=== PATIENT | female | born 1975 | race Caucasian/White ===

== ENCOUNTER → 2016-11-04 | Outpatient (CLI) | payer MEDICAID ==
--- NOTE | 2016-11-04 11:43 | CR ---
EXAMINATION: Left shoulder HISTORY: Pain COMPARISON: None TECHNIQUE: 3 views FINDINGS/IMPRESSION: There is a mildly comminuted essentially nondisplaced proximal left humerus fra cture with a probable greater tuberosity avulsion component. Screw and plate hardware fixate the dis elmer clavicle. Bone mineralization is otherwise normal.
== END ==
LOC: MW.CHORTHO 08:33
PROVIDERS: ATTEND Orthopaedic Surgery
DX: M25.512 Pain in left shoulder (principal); S42.255A Nondisplaced fracture of greater tuberosity of left humerus, initial encounter for closed fracture; Z96.7 Presence of other bone and tendon implants
CPT/HCPCS: 73030-26-LT; 73030-LT

== ENCOUNTER → 2016-11-07 | Outpatient (CLI) | payer MEDICAID ==
--- NOTE | 2016-11-10 14:29 | MR ---
EXAM DATE: 11/07/16 PATIENT'S AGE: 41 Patient: BOBBY GARRETT Facility: [place], [place] Site . Site : [id number] Study: MRI Knee Left [id number]/12/2017 6:31:01 PM Ordering Physician: Nain Bar Final Report: HISTORY: Left knee pain. Technique: Axial, sagittal and coronal T1, proton density and proton density fat saturated images were obtained of the left knee without contrast administration. Comparison: No prior. Findings: Medial compartment: Medial meniscus: On sagittal PD image #20, there is increased signal involving the free edge of the posterior horn of the medial meniscus close to the root of the meniscus which may indicate a small area of meniscal fraying. The body and anterior horn of the medial meniscus are intact. Articular cartilage: There is a mild impaction fracture involving the far posterior aspect of the medial tibial plateau without depression of the articular surface or definite focal cartilage defect. Articular surfaces within the medial compartment appear smooth. The medial femoral condyle articular cartilage is maintained. - Lateral compartment: Lateral meniscus: Intact without tear. Articular cartilage: There is an impaction fracture involving the posterior 1.3 cm of the lateral tibial plateau with mild depression of the articular surface and posterior downward sloping of the articular surface. There does not appear to be focal abrupt step-off at the surface of the articular cartilage itself. Lateral femoral condyle articular cartilage is maintained. - Patellofemoral compartment: Small area of subtle subchondral marrow edema underlying the patellar apex and lateral facet apex junction likely relates to the presence of overlying grade 4 cartilage abnormality. There is no focal trochlear cartilage defect. - Ligaments: There is an acute traumatic disruption of the anterior cruciate ligament. The posterior cruciate ligament is intact. Medial collateral ligament is intact. Lateral ligamentous complex maintained. - Extensor mechanism: Distal quadriceps tendon and patellar tendon are intact. Medial and lateral patellar restraints are intact. No patellar subluxation or rosio. - Joint space: Moderate knee joint effusion. There is potentially some intra- articular hemorrhage within the joint space superiorly. - Bones and soft tissues: As above, there is impaction fracture involving the posterior 1.3 cm of lateral tibial plateau with posterior downward sloping of the articular surface. Small impaction fracture involving the far posterior aspect of medial tibial plateau without depression of the articular surface. Bone marrow contusion lateral aspect lateral femoral condyle. Nondisplaced fracture involving the fibular head. Interstitial muscle edema involving the popliteus muscle compatible with strain. Posterolateral corner capsular sprain. No significant popliteal cyst. Impression: 1. Acute traumatic disruption of the anterior cruciate ligament of the left knee. 2. Mild impaction fracture involving the posterior aspect of lateral tibial plateau with posterior downward sloping. Small impaction fracture involving posterior aspect of medial tibial plateau. 3. Nondisplaced fracture of fibular head. 4. Bone marrow contusion of the lateral aspect of lateral femoral condyle. 5. Knee joint effusion, likely with intra-articular hemorrhage. 6. Chondromalacia patella. 7. Popliteus muscle strain and posterolateral corner capsular sprain. 8. Small area of increased signal involving the free edge of the posterior horn of medial meniscus could reflect a small area of fraying. Menisci are otherwise intact. Dictated by Tony Carter MD @ Nov 10 2016 10:24AM (Electronic Signature) Report Signed by Proxy. CHANDU
== END ==
LOC: MW.MRI 16:12
PROVIDERS: ATTEND Orthopaedic Surgery
DX: M25.562 Pain in left knee (principal)
CPT/HCPCS: 73721-26-LT; 73721-LT

== ENCOUNTER → 2016-11-11 | Outpatient (CLI) | payer MEDICAID ==
--- NOTE | 2016-11-11 13:51 | CR ---
EXAMINATION: Left shoulder HISTORY: Fracture COMPARISON: 11/04/2016 TECHNIQUE: 2 views FINDINGS/IMPRESSION: There is a stable mildly comminuted nondisplaced proximal left humerus fracture identified. Screw and plate hardware fixate a remote clavicle fracture. Overall position and alignm ent appear grossly unchanged.
== END ==
LOC: MW.CHORTHO 09:56
PROVIDERS: ATTEND Orthopaedic Surgery
DX: S42.295A Other nondisplaced fracture of upper end of left humerus, initial encounter for closed fracture (principal); Z96.7 Presence of other bone and tendon implants
CPT/HCPCS: 73030-26-LT; 73030-LT

== ENCOUNTER 2017-07-29 09:57 | Day surgery (SDC) | payer MEDICAID ==
[~2017-07-29 09:57] MED LIST: Acetaminophen/HYDROcodone 325-5 MG Tab PO PRN; Lactated Ringers 1,000 ML IV SCH; ceFAZolin 2 GM in Premix Bag 1 BAG IV SCH
--- NOTE | 2017-07-29 11:20 | PCM.PREANE ---
Preanesthetic Assessment - Anesthesia/Transfusion/Family Hx Anesthesia History: Prior Anesthesia Without Reaction Family History of Anesthesia Reaction: No Transfusion History: No Prior Transfusion(s) - Review of Systems General: No Symptoms Pulmonary: No Symptoms Cardiovascular: No Symptoms Gastrointestinal: No Symptoms Neurological: No Symptoms Other: Reports: None - Physical Assessment NPO Status Date: 07/28/17 NPO Status Time: 20:00 O2 Sat by Pulse Oximetry: 97 Respiratory Rate: 16 Vital Signs: Last Vital Signs Temp 35.8 C 07/29/17 10:15 Pulse 72 07/29/17 10:15 Resp 16 07/29/17 10:15 BP 134/87 07/29/17 10:15 Pulse Ox 97 07/29/17 10:15 Height: 1.73 m Weight: 109.316 kg ASA Class: 2 Mental Status: Alert & Oriented x3 Airway Class: Mallampati = 2 Dentition: Reports: Dentures ROM/Head Extension: Full Lungs: Clear to Auscultation, Normal Respiratory Effort Cardiovascular: Regular Rate, Regular Rhythm - Allergies Allergies/Adverse Reactions: Allergies Allergy/AdvReac Type Severity Reaction Status Date / Time No Known Allergies Allergy Verified 07/27/17 08:13 - Acknowledgements Anesthesia Type Planned: General Anesthesia Pt an Appropriate Candidate for the Planned Anesthesia: Yes Alternatives and Risks of Anesthesia Discussed w Pt/Guardian: Yes Pt/Guardian Understands and Agrees with Anesthesia Plan: Yes Additional Comments: PMH: fibromyalgia, Wheezing - uses inhaler once a week, smoker, hx of seizure from xanax withdrawl, htn, bipolar PreAnesthesia Questionnaire HEENT History: Reports: Other (See Below) Other HEENT History: top and bottom dentures, wears glasses/contacts Cardiovascular History: Reports: Heart Murmur, Hypertension Respiratory History: Reports: Asthma Other Respiratory History: states asthma is weather related Gastrointestinal History: Reports: GERD Genitourinary History: Reports: None 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: Musculoskeletal History: Reports: Fibromyalgia Other Musculoskeletal History: hx fx back, shoulder, wrist and clavicle Neurological History: Reports: Concussion, Seizure Other Neuro History: states "had seizure due to being taken off medication", 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" Psychiatric History: Reports: Anxiety, Bipolar, Depression Endocrine/Metabolic History: Reports: Obesity/BMI 30+ Oncologic (Cancer) History: Reports: Cervix - Past Surgical History Head Surgeries/Procedures: Reports: None GI Surgical History: Reports: Cholecystectomy Female Surgical History: Reports: Hysterectomy Musculoskeletal Surgical History: Reports: Other (See Below) Other Musculoskeletal Surgeries/Procedures:: clavicle fx repair - SUBSTANCE USE Smoking Status *Q: Current Every Day Smoker Recreational Drug Use History: No - HOME MEDS Home Medications: Home Meds Celecoxib 2 tab PO DAILY 03/30/17 [History] DULoxetine [Cymbalta] 30 mg PO BID 03/30/17 [History] Gabapentin [Neurontin] 600 mg PO TID 03/30/17 [History] Omeprazole 20 mg PO DAILY 03/30/17 [History] tiZANidine [Zanaflex] 4 mg PO BEDTIME 03/30/17 [History] ALPRAZolam [Alprazolam] 0.5 mg PO TID PRN 07/27/17 [History] Albuterol [Ventolin HFA] 2 puff INH ASDIRECTED PRN 07/27/17 [History] Losartan Potassium 25 mg PO DAILY 07/27/17 [History] Vortioxetine Hydrobromide [Trintellix] 5 mg PO DAILY 07/27/17 [History] - CURRENT (IN HOUSE) MEDS Current Meds: Current Medications Hydrocodone Bitart/Acetaminophen (Sanford 325-5 Mg) 1 - 2 tab PO Q4H PRN PRN Reason: Pain Cefazolin Sodium/Dextrose 2 gm (/ Premix) 50 mls @ 100 mls/hr IV ONCALL JABARI Lactated Ringer's (Ringers, Lactated) 1,000 mls @ 100 mls/hr IV ASDIRECTED [facility] Last Admin: 07/29/17 10:23 Dose: 100 mls/hr
[2017-07-29] MEDS ORDERED: Lidocaine 2% 5 ML SDV ONE (12:08)
[2017-07-29] MEDS ORDERED: Propofol 200 MG/20 ML SDV ONE (12:09)
[2017-07-29] MEDS ORDERED: Midazolam 1 MG/ML 2 ML SDV ONE ×2 (12:09→12:33)
[2017-07-29] MEDS ORDERED: fentaNYL 100 MCG/2 ML SDV ONE (12:09)
[2017-07-29] MEDS ORDERED: Midazolam 1 MG/ML 2 ML SDV IVPUSH ONE (12:37)
--- NOTE | 2017-07-29 14:06 | PCM.OPNOTE ---
- General Post-Op/Procedure Note Date of Surgery/Procedure: 07/29/17 Operative Procedure(s): L knee arthroscopy with PMM Post-Op Diagnosis: L knee medial meniscus tear, ACL tear Anesthesia Technique: General LMA Primary Surgeon: Dipika Gillette Assistant Teacher: Radha Crump in mLs: 5 Condition: Good Free Text/Narrative:: tt=20 min #[id number]
[2017-07-29] MEDS ORDERED: Labetalol 100 MG/20 ML MDV ONE (14:11)
[2017-07-29] MEDS: fentaNYL 100 MCG/2 ML SDV IVPUSH PRN ×4 (14:45→15:05)
--- NOTE | 2017-07-29 15:20 | PCM.POSTAN ---
POST ANESTHESIA ASSESSMENT - MENTAL STATUS Mental Status: Alert, Oriented - RESPIRATORY Respiratory Status: Respiratory Rate WNL, Airway Patent, O2 Saturation Stable - CARDIOVASCULAR CV Status: Pulse Rate WNL, Blood Pressure Stable - GASTROINTESTINAL GI Status: No Symptoms - PAIN Pain Score: 4 - POST OP HYDRATION Hydration Status: Adequate & Stable
--- NOTE | 2017-07-29 15:32 | PCM48HPAN ---
Post Anesthesia Note - EVALUATION WITHIN 48HRS OF ANESTHETIC Vital Signs in Normal Range: Yes Patient Participated in Evaluation: Yes Respiratory Function Stable: Yes Airway Patent: Yes Cardiovascular Function Stable: Yes Hydration Status Stable: Yes Pain Control Satisfactory: Yes Nausea and Vomiting Control Satisfactory: Yes Mental Status Recovered: Yes - COMMENTS/OBSERVATIONS Free Text/Narrative:: Pt has just taken pain meds and is currently eating some jello. No apparent anesthesia complications.
[2017-07-29 16:07] VITALS: BP 138/89
[2017-07-29] MEDS ORDERED: Lidocaine 1% 20 ML MDV ONE (17:41)
--- NOTE | 2017-07-29 20:44 | OR ---
SURGEON: Dipika Gillette MD DATE OF PROCEDURE: 07/29/2017 PREOPERATIVE DIAGNOSES: 1. Left knee medial meniscus tear. 2. Left knee ACL tear. POSTOPERATIVE DIAGNOSES: 1. Left knee medial meniscus tear. 2. Left knee ACL tear. PROCEDURE: Left knee arthroscopy with partial medial meniscectomy. BENEFITS ASSISTANT: Radha Crump PA-C. ANESTHESIA: General. ESTIMATED BLOOD LOSS: 5 mL. TOURNIQUET TIME: 20 minutes. COMPLICATIONS: None. DVT PROPHYLAXIS: Not indicated. IMPLANTS USED: None. BRIEF HISTORY: Alicia is a 41-year-old female who initially sustained a left knee injury last year. An MRI at that time showed a tear of the ACL. We elected to treat this conservatively. She has recently had another fall in which a repeat MRI was ordered. This did show a complex tear of the medial meniscus. Due to her lack of response to conservative treatment, I did recommend surgical intervention. The risks and goals of procedure were discussed with the patient and were documented preoperatively. She agreed to proceed. DESCRIPTION OF PROCEDURE: The patient was properly identified and brought to the operating room. She was transferred from the OR cart and placed on the operating table in supine position. General anesthesia was administered. After adequate anesthesia was obtained, a well-padded tourniquet was applied to the left lower extremity. The left lower extremity was then prepped in standard fashion using ChloraPrep solution. It was then sterilely draped. A time-out was performed to ensure correct site and procedure. Preoperative antibiotics were given. The surgical site had been marked preoperatively. An Esmarch was used to exsanguinate the left lower extremity and the tourniquet was inflated to 250 mmHg. A lateral portal arthrotomy was established. Blunt trocar and cannula were introduced into the suprapatellar pouch. Camera, inflow, and outflow were assembled. No significant synovitis was noted within the pouch. The patellofemoral joint was visualized. An area of grade 2 to grade 3 chondromalacia was noted along the inferior portion of the patella. The trochlear groove did not show significant degenerative findings. I then extended on the lateral and medial gutter. No loose bodies were identified. I then entered the medial compartment. A medial portal arthrotomy was established. A blunt probe was inserted. She was found to have a complex tear along the posterior horn of the medial meniscus. I was able to use a probe to pull the meniscus into the joint consistent with an unstable injury. Using a combination of biters and shaver, this was resected back to a stable remnant. The meniscus was again probed and found to be stable. The medial tibial plateau showed grade 1 to grade 2 diffuse chondromalacia. The medial femoral condyle had an area of grade 2 to grade 3 chondromalacia along the lateral aspect of the medial femoral condyle. A chondroplasty was performed to remove any loose fragments of cartilage. I then entered the notch. The ACL was visualized. A small portion remained attached to the lateral femoral condyle. The majority was scarred to the PCL. The ACL was probed and was stable and did not appear to cause any impingement within the joint. PCL was also intact. I then entered the lateral compartment. Diffuse grade 1 chondromalacia was noted. The meniscus showed minor degenerative fraying centrally. The meniscus was probed and found to be intact. I then re-entered the patellofemoral joint. A shaver was used to resect the loose cartilage along the undersurface of the patella back to a stable remnant. Instruments were then removed from the knee. The portal sites were closed with 3-0 nylon. Lidocaine 1% was injected along the portal tracts. Xeroform gauze was placed over the wound and a bulky dressing was applied. The tourniquet was then deflated. She was awakened from her anesthetic and transferred back to the operating room cart. She was brought to recovery room in stable condition. All needle and sponge counts were correct. ROCHELLE / WILLARD /[id number]
== END 2017-07-29 16:05 | disposition home or self-care (01) ==
LOC: MW.SDS 09:57
PROVIDERS: ATTEND Orthopaedic Surgery
DX: S83.242A Other tear of medial meniscus, current injury, left knee, initial encounter (principal); S83.512A Sprain of anterior cruciate ligament of left knee, initial encounter; F17.200 Nicotine dependence, unspecified, uncomplicated; J45.909 Unspecified asthma, uncomplicated; F41.9 Anxiety disorder, unspecified; F31.9 Bipolar disorder, unspecified; I10 Essential (primary) hypertension; G43.909 Migraine, unspecified, not intractable, without status migrainosus; Z79.899 Other long term (current) drug therapy; Z79.51 Long term (current) use of inhaled steroids; Z79.52 Long term (current) use of systemic steroids; Z90.710 Acquired absence of both cervix and uterus; Z98.890 Other specified postprocedural states
CPT/HCPCS: 29881; A9270; J2250; J3010; J7120; 01400; 88304; J2704

== ENCOUNTER 2018-10-29 12:39 | Day surgery (SDC) | payer MEDICAID ==
[~2018-10-29 12:39] MED LIST changes: -Acetaminophen/HYDROcodone 325-5 MG Tab PO PRN; -ceFAZolin 2 GM in Premix Bag 1 BAG IV SCH
[2018-10-29] MEDS ORDERED: Midazolam 1 MG/ML 2 ML SDV ONE ×2 (13:41→14:17)
--- NOTE | 2018-10-29 13:50 | PCM.PREANE ---
Preanesthetic Assessment - Anesthesia/Transfusion/Family Hx Anesthesia History: Prior Anesthesia Without Reaction Family History of Anesthesia Reaction: No Transfusion History: No Prior Transfusion(s) Intubation History: Unknown - Review of Systems General: No Symptoms Pulmonary: No Symptoms Cardiovascular: No Symptoms Gastrointestinal: Constipation, Other (family h/o colon cancer) Neurological: No Symptoms Other: Reports: None - Physical Assessment O2 Sat by Pulse Oximetry: 97 Respiratory Rate: 16 Vital Signs: Last Vital Signs Temp 36.2 C 10/29/18 13:26 Pulse 62 10/29/18 13:26 Resp 16 10/29/18 13:26 BP 158/97 H 10/29/18 13:26 Pulse Ox 97 10/29/18 13:26 Height: 1.73 m Weight: 107.048 kg ASA Class: 2 Mental Status: Alert & Oriented x3 Airway Class: Mallampati = 2 Dentition: Reports: Dentures (upper and lower) Thyro-Mental Finger Breadths: 3 Mouth Opening Finger Breadths: 3 ROM/Head Extension: Full Lungs: Clear to Auscultation, Normal Respiratory Effort Cardiovascular: Regular Rate, Regular Rhythm - Allergies Allergies/Adverse Reactions: Allergies Allergy/AdvReac Type Severity Reaction Status Date / Time No Known Allergies Allergy Verified 10/26/18 09:37 - Blood Blood Available: No - Anesthesia Plan Pre-Op Medication Ordered: None - Acknowledgements Anesthesia Type Planned: MAC Pt an Appropriate Candidate for the Planned Anesthesia: Yes Alternatives and Risks of Anesthesia Discussed w Pt/Guardian: Yes Pt/Guardian Understands and Agrees with Anesthesia Plan: Yes PreAnesthesia Questionnaire HEENT History: Reports: Other (See Below) Other HEENT History: top and bottom dentures, wears glasses/contacts Cardiovascular History: Reports: Heart Murmur, Hypertension Respiratory History: Reports: Asthma (mild, seasonal) Gastrointestinal History: Reports: GERD Genitourinary History: Reports: None 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: Musculoskeletal History: Reports: Fracture, Fibromyalgia, Neck Pain, Chronic Other Musculoskeletal History: hx fx back, shoulder, wrist and clavicle, DDD Neurological History: Reports: Concussion, Migraines, Seizure Other Neuro History: states "had seizure due to being taken off medication", Psychiatric History: Reports: Anxiety, Bipolar, Depression, PTSD Endocrine/Metabolic History: Reports: Obesity/BMI 30+ Hematologic History: Reports: None Immunologic History: Reports: None Oncologic (Cancer) History: Reports: Cervix Dermatologic History: Reports: None - Past Surgical History Head Surgeries/Procedures: Reports: None HEENT Surgical History: Reports: None Cardiovascular Surgical History: Reports: None Respiratory Surgical History: Reports: None GI Surgical History: Reports: Cholecystectomy Female Surgical History: Reports: Hysterectomy Endocrine Surgical History: Reports: None Neurological Surgical History: Reports: None Musculoskeletal Surgical History: Reports: Arthroscopic Knee, Other (See Below) Other Musculoskeletal Surgeries/Procedures:: clavicle fx repair Oncologic Surgical History: Reports: None Dermatological Surgical History: Reports: None - SUBSTANCE USE Smoking Status *Q: Current Every Day Smoker Tobacco Use Within Last Twelve Months: Cigarettes - HOME MEDS Home Medications: Home Meds Gabapentin [Neurontin] 600 mg PO TID 03/30/17 [History] Omeprazole 20 mg PO DAILY 03/30/17 [History] tiZANidine [Zanaflex] 4 mg PO BEDTIME 03/30/17 [History] Albuterol [Ventolin HFA] 2 puff INH ASDIRECTED PRN 07/27/17 [History] Doxepin [SINEquan] 25 mg PO BEDTIME 10/26/18 [History] Hydrocodone/Acetaminophen [Hydrocodon-Acetaminophen 5-325] 1 tab PO TID [History] LORazepam 0.5 mg PO BID 10/26/18 [History] Lurasidone HCl [Latuda] 80 mg PO DAILY 10/26/18 [History] Milnacipran HCl [Savella] 50 mg PO TID 10/26/18 [History] Venlafaxine HCl [Venlafaxine HCl ER] 75 mg PO TID 10/26/18 [History] cloNIDine [Catapres] 0.1 mg PO TID 10/26/18 [History] - CURRENT (IN HOUSE) MEDS Current Meds: Current Medications Lactated Ringer's (Ringers, Lactated) 1,000 mls @ 125 mls/hr IV ASDIRECTED [facility] Last Admin: 10/29/18 13:31 Dose: 125 mls/hr Discontinued Medications Midazolam HCl (Versed 1 Mg/Ml) Confirm Administered Dose 2 mg .ROUTE .STK-MED ONE Stop: 10/29/18 13:42
[2018-10-29] MEDS ORDERED: fentaNYL 100 MCG/2 ML SDV ONE (14:17)
[2018-10-29] MEDS ORDERED: Lidocaine 2% 5 ML SDV ONE (14:17)
[2018-10-29] MEDS ORDERED: Propofol 200 MG/20 ML SDV ONE ×2 (14:18→15:42)
--- NOTE | 2018-10-29 16:19 | PCM.OPNOTE ---
- General Post-Op/Procedure Note Date of Surgery/Procedure: 10/29/18 Operative Procedure(s): egd w bx and colonoscope w bx Findings: see dict [id number] Pre Op Diagnosis: wt loss, BRBPR, abd pain Post-Op Diagnosis: Same Anesthesia Technique: Moderate Sedation Primary Surgeon: Ken Rios Pathology: egd bx colon cecal bx for hyperemic, and random colon bx for abd pain Complications: None Condition: Good
--- NOTE | 2018-10-29 16:29 | PCM.POSTAN ---
POST ANESTHESIA ASSESSMENT - VITAL SIGNS Pulse Rate: 74 SaO2: 100 Resp Rate: 19 Blood Pressure: 155/88 Temperature: 36.3 C - RESPIRATORY Respiratory Status: Respiratory Rate WNL, Airway Patent, O2 Saturation Stable - CARDIOVASCULAR CV Status: Pulse Rate WNL, Blood Pressure Stable - GASTROINTESTINAL GI Status: No Symptoms - PAIN Pain Score: 0 - POST OP HYDRATION Hydration Status: Adequate & Stable - OBSERVATIONS Free Text/Narrative:: Pt stable, no adverse Anesthesia outcomes noted.
--- NOTE | 2018-10-29 17:08 | PCM48HPAN ---
Post Anesthesia Note - EVALUATION WITHIN 48HRS OF ANESTHETIC Vital Signs in Normal Range: Yes Patient Participated in Evaluation: Yes Respiratory Function Stable: Yes Airway Patent: Yes Cardiovascular Function Stable: Yes Hydration Status Stable: Yes Pain Control Satisfactory: Yes Nausea and Vomiting Control Satisfactory: Yes Mental Status Recovered: Yes Pulse Rate: 74 Resp Rate: 16 Temperature: 97.3 F Blood Pressure: 155/88 - COMMENTS/OBSERVATIONS Free Text/Narrative:: No anesthesia complications
[2018-10-29 17:09] VITALS: BP 155/88
--- NOTE | 2018-10-30 00:45 | OR ---
SURGEON: Ken Rios MD DATE OF PROCEDURE: 10/29/2018 PREOPERATIVE DIAGNOSES: Weight loss, abdominal pain, and bright red blood per rectum. POSTOPERATIVE DIAGNOSES: EGD diagnosis is gastroesophageal reflux disease and colonoscopy diagnosis is diverticulosis. PROCEDURE PERFORMED: EGD with biopsy and colonoscopy w biopsy EGD: The patient was taken to the endoscopy room, and with the GAMBLING BROKER, Diprivan was administered. A well-lubricated EGD scope was gently inserted through the oropharynx, down the esophagus, passing through the gastroesophageal junction, into the stomach. The mucosa was examined upon the passage. Any etiology will be noted. Once in the stomach, we continued to advance to the distal antrum, passed through the pylorus into the second portion of the duodenum. Again, the mucosa was examined for any abnormality and etiology. The scope was then retrieved back to the stomach and then retroflexed to look at the fundus of the stomach. If a biopsy was indicated, we will biopsy the antrum, body, and gastroesophageal junction. The air will be sucked out while the scope is retrieved to reduce the patient's discomfort. The patient tolerated the procedure well. There were no intraoperative complications. Dr. Rios was present through the whole procedure. Prior to surgery, a time-out had been called, the patient identified, procedure identified and antibiotic administered. Colonoscopy with biopsy: The patient was taken to the endoscopy room. A time out was called, patient identified, and procedure identified. Diprivan was then administrated. Patient went from awake to sleep, hearing doctor talking or door closing is normal. Perineum inspection and digital examination were then performed. A well- lubricated colonoscope was gently inserted through the rectum, advanced past the rectosigmoid junction, the descending colon, splenic flexure, transverse colon, hepatic flexure, ascending colon, arrived to the cecum. Cecum was identified as dictated in the finding. Then the scope was carefully withdrawn while attention was paid to the mucosal surface for any abnormality. Air will be sucked out during the scope withdrawal. At the rectum, retroflexed to examine any rectal diseases, fistula or hemorrhoids. During mucosal examination, biopsy performed. Patient tolerated procedure well. There were no intraoperative complications, and Dr. Rios was present throughout the whole procedure. FINDINGS: EGD findings: 1. The patient is easily sedated with GAMBLING BROKER and Diprivan and the patient is soundly snoring. 2. Oropharynx and proximal esophagus are free of disease, inflammation, stricture, ulceration, varicosity. Distal esophagus at GE junction at 40 shows mild salmon-colored change consistent with mild GERD. Stomach rugae is normal in appearance, antrum is a little inflamed, duodenum is grossly normal and retroflexed to look at the fundus of the stomach, there is no hiatal hernia. Biopsy done at antrum, body, GE junction at 40 and sucked out the air while scope coming out. Of note, the patient's stomach, except to the antrum area, is extremely hot, trying to biopsy 3 times, still cannot get any, kind of like plastic bottle and we will see what the biopsy results show. 3. During the whole study, there is no blood, bile, or food observed on the EGD study. Colonoscopy findings: 1. The patient is easily sedated with GAMBLING BROKER and Diprivan and the patient is soundly snoring. 2. Bowel prep is below average, a large amount of liquid stool and obscured study. This is a compromised study because of suboptimum bowel prep, it is not very bad, but it is a little bit compromised. The patient's colon rather redundant at the sigmoid requiring several maneuvers in order to get to the cecum. Cecum can only be seen at distant, tried almost like 5 minutes and with several maneuvers and still cannot get close to the cecum. Cecum is being observed at the distance indicated by ileocecal fold, appendix orifice, and one-to-one indentation, light emittance is not observed. Mucosa examined upon scope pulling out with large amount of irrigation. The patient had mild diverticulosis on the left colon, no signs or symptoms of diverticulitis. No polyp, mass, growth, inflammation, stricture, ulceration, AV malformation, blood, ulcer, none of those, and at the cecum is a little bit hyperemic and is not an inflammation, hyperemic, biopsy x2 send and also random biopsy was done around the colon for abdominal pain so should have 2 specimens: a. Cecal biopsy of a hyperemic. b. Random biopsy of the colon. 3. The patient has mild internal hemorrhoids and mild external hemorrhoids. The patient would benefit from repeat colonoscopy in 10 years from today or if clinically indicated otherwise. KEE / WILLARD /[id number] CHANDU
== END 2018-10-29 16:48 | disposition home or self-care (01) ==
LOC: MW.SDS 12:39
PROVIDERS: ATTEND Surgery
DX: K62.5 Hemorrhage of anus and rectum (principal); K57.30 Diverticulosis of large intestine without perforation or abscess without bleeding; K63.89 Other specified diseases of intestine; K64.8 Other hemorrhoids; K64.4 Residual hemorrhoidal skin tags; K59.8 Other specified functional intestinal disorders; K29.50 Unspecified chronic gastritis without bleeding; K21.0 Gastro-esophageal reflux disease with esophagitis; R63.4 Abnormal weight loss; I10 Essential (primary) hypertension; J45.909 Unspecified asthma, uncomplicated; F41.9 Anxiety disorder, unspecified; F31.9 Bipolar disorder, unspecified; F17.210 Nicotine dependence, cigarettes, uncomplicated; Z80.0 Family history of malignant neoplasm of digestive organs; Z68.35 Body mass index [BMI] 35.0-35.9, adult; Z79.899 Other long term (current) drug therapy
CPT/HCPCS: 43239; 45380; J2001; J2250; J2704; J3010; J7120; 88305; 88312

== ENCOUNTER 2019-06-27 18:23 | Emergency (ER) | payer MEDICAID ==
[2019-06-27] MEDS ORDERED: Ketorolac 60 MG/2 ML SDV IM ONE (19:25)
--- NOTE | 2019-06-27 19:31 | EDM.PDOC ---
ED HPI GENERAL MEDICAL PROBLEM - General Chief Complaint: General Stated Complaint: POSSIBLE BROKEN RIB Time Seen by Provider: 06/27/19 19:16 Source of Information: Reports: Patient History Limitations: Reports: No Limitations - History of Present Illness INITIAL COMMENTS - FREE TEXT/NARRATIVE: HISTORY AND PHYSICAL: History of present illness: Patient is a 43-year-old female who presents to the ED today with concern of left rib pain that has been ongoing since last night. Patient states she was smoking marijuana last night and she began to cough. Patient states she coughed and felt a "pop" in the left side of her ribs. Patient states she has not taken anything for her symptoms. Patient denies any direct trauma or injury to the left side of the rib. Patient denies any other symptoms or concerns. Patient states she does have a complete hysterectomy. Patient denies fever, chills, chest pain, shortness of breath, or cough. Denies headache, neck stiff ness, change in vision, syncope, or near syncope. Denies nausea, vomiting, abdominal pain, diarrhea, constipation, or dysuria. Has not noted any blood in urine or stool. Patient has been eating and drinking appropriately. Review of systems: As per history of present illness and below otherwise all systems reviewed and negative. Past medical history: As per history of present illness and as reviewed below otherwise noncontributory. Surgical history: As per history of present illness and as reviewed below otherwise noncontributory. Social history: See social history for further information Family history: As per history of present illness and as reviewed below otherwise noncontributory. Physical exam: General: Patient is alert, oriented, and in no acute distress. Patient sitting comfortably on exam table. HEENT: Atraumatic, normocephalic, pupils equal and reactive bilaterally, negative for conjunctival pallor or scleral icterus, mucous membranes moist, TMs normal bilaterally, throat clear, neck supple, nontender, trachea midline. No drooling or trismus noted. No meningeal signs. No hot potato voice noted. Lungs: Clear to auscultation, breath sounds equal bilaterally. Patient has moderate pain to palpation of posterior ribs # 4-5 just inferior to the scapula on the left. No obvious deformity of the ribs or any bruising noted. No crepitus felt on palpation of this area. Heart: S1S2, regular rate and rhythm without overt murmur Abdomen: Soft, nondistended, nontender. Negative for masses or hepatosplenomegaly. Negative for costovertebral tenderness. Pelvis: Stable nontender. Genitourinary: Deferred. Rectal: Deferred. Skin: Intact, warm, dry. No lesions or rashes noted. Extremities: Atraumatic, negative for cords or calf pain. Neurovascular unremarkable. Neuro: Awake, alert, oriented. Cranial nerves II through XII unremarkable. Cerebellum unremarkable. Motor and sensory unremarkable throughout. Exam nonfocal. Notes: Discussed the importance for follow-up with a primary care provider. Voices understanding and is agreeable to plan of care. Denies any further questions or concerns at this time. Diagnostics: EKG, Rib w chest XR Therapeutics: Toradol Prescription: Diclofenac, Incentive spirometer Impression: Left sided rib pain Plan: 1. Rest, ice, elevate the affected extremity. You can apply ice and or heat 15 minutes on, 15 minutes off. Take medication as prescribed. 2. Tylenol as directed for pain management or discomfort. Use the incentive spirometer as discussed. 3. Follow up with the primary care provider as discussed. Return to the ED as needed and as discussed. Definitive disposition and diagnosis as appropriate pending reevaluation and review of above. Ribs Pain Score (Numeric/FACES): 10 - Related Data Allergies Allergy/AdvReac Type Severity Reaction Status Date / Time No Known Allergies Allergy Verified 06/27/19 19:13 Home Meds: Home Meds Gabapentin [Neurontin] 600 mg PO TID 03/30/17 [History] Omeprazole 20 mg PO DAILY 03/30/17 [History] tiZANidine [Zanaflex] 4 mg PO BEDTIME 03/30/17 [History] Albuterol [Ventolin HFA] 2 puff INH ASDIRECTED PRN 07/27/17 [History] Doxepin [SINEquan] 25 mg PO BEDTIME 10/26/18 [History] Hydrocodone/Acetaminophen [Hydrocodon-Acetaminophen 5-325] 1 tab PO TID [History] LORazepam 0.5 mg PO BID 10/26/18 [History] Lurasidone HCl [Latuda] 80 mg PO DAILY 10/26/18 [History] Milnacipran HCl [Savella] 50 mg PO TID 10/26/18 [History] Venlafaxine HCl [Venlafaxine HCl ER] 75 mg PO TID 10/26/18 [History] cloNIDine [Catapres] 0.1 mg PO TID 10/26/18 [History] Iopamidol [Isovue Multipack-370 (76%)] 100 ml IV ASDIRECTED #1 bottle 04/21/19 [ Rx] Diclofenac Sodium [Voltaren] 75 mg PO BIDMEALS PRN #15 tab.cr 06/27/19 [Rx] Past Medical History HEENT History: Reports: Other (See Below) Other HEENT History: top and bottom dentures, wears glasses/contacts Cardiovascular History: Reports: Heart Murmur, Hypertension Respiratory History: Reports: Asthma Gastrointestinal History: Reports: GERD Genitourinary History: Reports: None 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: Musculoskeletal History: Reports: Fracture, Fibromyalgia, Neck Pain, Chronic Other Musculoskeletal History: hx fx back, shoulder, wrist and clavicle, DDD Neurological History: Reports: Concussion, Migraines, Seizure Other Neuro History: states "had seizure due to being taken off medication", Psychiatric History: Reports: Anxiety, Bipolar, Depression, PTSD Endocrine/Metabolic History: Reports: Obesity/BMI 30+ Hematologic History: Reports: None Immunologic History: Reports: None Oncologic (Cancer) History: Reports: Cervix Dermatologic History: Reports: None - Infectious Disease History Infectious Disease History: Reports: Chicken Pox - Past Surgical History Head Surgeries/Procedures: Reports: None HEENT Surgical History: Reports: None Cardiovascular Surgical History: Reports: None Respiratory Surgical History: Reports: None GI Surgical History: Reports: Cholecystectomy Female Surgical History: Reports: Hysterectomy Endocrine Surgical History: Reports: None Neurological Surgical History: Reports: None Musculoskeletal Surgical History: Reports: Arthroscopic Knee, Other (See Below) Other Musculoskeletal Surgeries/Procedures:: clavicle fx repair Oncologic Surgical History: Reports: None Dermatological Surgical History: Reports: None Social & Family History - Family History Family Medical History: Noncontributory - Tobacco Use Smoking Status *Q: Never Smoker Second Hand Smoke Exposure: No - Caffeine Use Caffeine Use: Reports: None - Recreational Drug Use Recreational Drug Use: Yes Recreational Drug Type: Reports: Marijuana/Hashish Recreational Drug Use Frequency: Weekly ED ROS GENERAL - Review of Systems Review Of Systems: Comprehensive ROS is negative, except as noted in HPI. ED EXAM, GENERAL - Physical Exam Exam: See Below (see dictation) Course - Vital Signs Last Recorded V/S: Last Vital Signs Temp 96.5 F 06/27/19 19:13 Pulse 77 06/27/19 19:13 Resp 20 06/27/19 19:13 BP 147/106 H 06/27/19 19:13 Pulse Ox 100 06/27/19 19:13 - Orders/Labs/Meds Orders: Active Orders 24 hr Category Date Time Status EKG Documentation Completion [RC] STAT Care 06/27/19 19:13 Active DME for Discharge [COMM] Stat Oth 06/27/19 19:31 Ordered Meds: Medications Discontinued Medications Generic Name Dose Route Start Last Admin Trade Name Freq PRN Reason Stop Dose Admin Ketorolac Tromethamine 60 mg 06/27/19 19:25 06/27/19 19:38 Toradol IM 06/27/19 19:26 60 mg ONETIME ONE Administration Departure - Departure Time of Disposition: 21:00 Disposition: Home, Self-Care 01 Clinical Impression: Rib pain on left side - Discharge Information Prescriptions: Diclofenac Sodium [Voltaren] 75 mg PO BIDMEALS PRN #15 tab.cr PRN Reason: Pain Referrals: Chuck Luque MD [Primary Care Provider] - Forms: ED Department Discharge Additional Instructions: The following information is given to patients seen in the emergency department who are being discharged to home. This information is to outline your options for follow-up care. We provide all patients seen in our emergency department with a follow-up referral. The need for follow-up, as well as the timing and circumstances, are variable depending upon the specifics of your emergency department visit. If you don't have a primary care physician on staff, we will provide you with a referral. We always advise you to contact your personal physician following an emergency department visit to inform them of the circumstance of the visit and for follow-up with them and/or the need for any referrals to a consulting specialist. The emergency department will also refer you to a specialist when appropriate. This referral assures that you have the opportunity for follow-up care with a specialist. All of these measure are taken in an effort to provide you with optimal care, which includes your follow-up. Under all circumstances we always encourage you to contact your private physician who remains a resource for coordinating your care. When calling for follow-up care, please make the office aware that this follow-up is from your recent emergency room visit. If for any reason you are refused follow-up, please contact the [facility] at and asked to speak to the emergency department charge nurse. [facility] [address] [place] [address] [facility] [address] [place] [id number] 1. Rest, ice, elevate the affected extremity. You can apply ice and or heat 15 minutes on, 15 minutes off. Take medication as prescribed. 2. Tylenol as directed for pain management or discomfort. Use the incentive spirometer as discussed. 3. Follow up with the primary care provider as discussed. Return to the ED as needed and as discussed. Sepsis Event Note - Evaluation Sepsis Screening Result: No Definite Risk - Focused Exam Vital Signs: Vital Signs Temp Pulse Resp BP Pulse Ox 06/27/19 19:13 96.5 F 77 20 147/106 H 100 Date Exam was Performed: 06/27/19 Time Exam was Performed: 21:00 - My Orders Last 24 Hours: My Active Orders 06/27/19 19:31 DME for Discharge [COMM] Stat - Assessment/Plan Last 24 Hours: My Active Orders 06/27/19 19:31 DME for Discharge [COMM] Stat
--- NOTE | 2019-06-27 20:54 | CR ---
INDICATION: [place] pop after coughing COMPARISON: None TECHNIQUE: Frontal view of the chest and 4 views of the left ribs FINDINGS/IMPRESSION: 1. There is no evidence of acute displaced rib fracture. Multiple remote healed fractures are noted bilaterally. 2. The lungs are clear. There is no pleural effusion or pneumothorax. The cardiomediastinal silhouette is normal. 3. Surgical fixation changes are noted to the left clavicle. Dictated by oSnia Whittington MD @ Jun 27 2019 8:53PM Signed by Dr. Sonia Whittington @ Jun 27 2019 8:53PM
[2019-06-27 21:32] VITALS: BP 148/97; PULSE 74
== END 2019-06-27 21:07 | disposition home or self-care (01) ==
LOC: MW.ED 18:23
DX: R07.81 Pleurodynia (principal); I10 Essential (primary) hypertension; J45.909 Unspecified asthma, uncomplicated; K21.9 Gastro-esophageal reflux disease without esophagitis; F41.9 Anxiety disorder, unspecified; F32.9 Major depressive disorder, single episode, unspecified; E66.9 Obesity, unspecified; Z68.41 Body mass index [BMI] 40.0-44.9, adult; Z79.899 Other long term (current) drug therapy
CPT/HCPCS: 71101; 93005; 96372; 99284; J1885; 99283

== ENCOUNTER 2019-10-28 16:08 | Emergency (ER) | payer MEDICAID ==
--- NOTE | 2019-10-28 16:29 | EDM.PDOC ---
ED HPI GENERAL MEDICAL PROBLEM - General Chief Complaint: ENT Problem Stated Complaint: RINGING IN EARS AND TICK FEELINGS Time Seen by Provider: 10/28/19 16:20 - History of Present Illness INITIAL COMMENTS - FREE TEXT/NARRATIVE: 44-year-old female with a history of psychiatric disease who is presenting with increase of chronic diffuse tremor as well as foul salty taste in the mouth. Patient had her lithium level increased 1 week ago and a few days later developed the symptoms. She attributes it to the lithium level. She was also warned that it could cause salt retention she is wondering if that is a possibility. No ENT problems [facility] required this for some reason but this is not an ENT complaint. No chest pain no shortness of breath no SI or HI no auditory or visual hallucinations. Patient had previously been tried on lamotrigine but had significant weight gain with it and so was switched over to the lithium. Symptoms constant without exacerbating alleviating factors radiation or other associated symptoms. - Related Data Allergies Allergy/AdvReac Type Severity Reaction Status Date / Time No Known Allergies Allergy Verified 10/28/19 16:18 Home Meds: Home Meds Gabapentin [Neurontin] 600 mg PO TID 03/30/17 [History] Omeprazole 20 mg PO DAILY 03/30/17 [History] tiZANidine [Zanaflex] 4 mg PO BEDTIME 03/30/17 [History] Albuterol [Ventolin HFA] 2 puff INH ASDIRECTED PRN 07/27/17 [History] Doxepin [SINEquan] 25 mg PO BEDTIME 10/26/18 [History] LORazepam 0.5 mg PO BID 10/26/18 [History] Milnacipran HCl [Savella] 50 mg PO TID 10/26/18 [History] Venlafaxine HCl [Venlafaxine HCl ER] 75 mg PO TID 10/26/18 [History] cloNIDine [Catapres] 0.1 mg PO TID 10/26/18 [History] Iopamidol [Isovue Multipack-370 (76%)] 100 ml IV ASDIRECTED #1 bottle 04/21/19 [ Rx] Diclofenac Sodium [Voltaren] 75 mg PO BIDMEALS PRN #15 tab.cr 06/27/19 [Rx] [place] Carbonate mg PO BID 10/28/19 [History] Past Medical History HEENT History: Reports: Other (See Below) Other HEENT History: top and bottom dentures, wears glasses/contacts Cardiovascular History: Reports: Heart Murmur, Hypertension Respiratory History: Reports: Asthma Gastrointestinal History: Reports: GERD Genitourinary History: Reports: None STREET [employer] History: Reports: Musculoskeletal History: Reports: Fracture, Fibromyalgia, Neck Pain, Chronic Other Musculoskeletal History: hx fx back, shoulder, wrist and clavicle, DDD Neurological History: Reports: Concussion, Migraines, Seizure Other Neuro History: states "had seizure due to being taken off medication", Psychiatric History: Reports: Anxiety, Bipolar, Depression, PTSD Endocrine/Metabolic History: Reports: Obesity/BMI 30+ Hematologic History: Reports: None Immunologic History: Reports: None Oncologic (Cancer) History: Reports: Cervix Dermatologic History: Reports: None - Infectious Disease History Infectious Disease History: Reports: Chicken Pox - Past Surgical History Head Surgeries/Procedures: Reports: None HEENT Surgical History: Reports: None Cardiovascular Surgical History: Reports: None Respiratory Surgical History: Reports: None GI Surgical History: Reports: Cholecystectomy Female Surgical History: Reports: Hysterectomy Endocrine Surgical History: Reports: None Neurological Surgical History: Reports: None Musculoskeletal Surgical History: Reports: Arthroscopic Knee, Other (See Below) Other Musculoskeletal Surgeries/Procedures:: clavicle fx repair Oncologic Surgical History: Reports: None Dermatological Surgical History: Reports: None Social & Family History - Family History Family Medical History: Noncontributory - Caffeine Use Caffeine Use: Reports: None ED ROS GENERAL - Review of Systems Review Of Systems: See Below Free Text/Narrative/Comment: General: No fever. Skin: No rash. Eyes: No vision problems. ENT: No sore throat. Neck: No neck stiffness. Respiratory: No shortness of breath. Cardiac: No chest pain. Gastrointestinal: No nausea, vomiting or abdominal pain. Urinary: No dysuria. Musculoskeletal: No myalgias/arthralgias. Neurologic: No headache. ED EXAM, DIZZINESS - Physical Exam Exam: See Below Text/Narrative:: General Appearance: No acute distress, appears comfortable Skin: No rash HEENT: Normocephalic/atraumatic, sclera anicteric, mucous membranes moist Neck: Normal range of motion Chest and Lungs: Bilateral breath sounds, clear to auscultation Cardiovascular: Regular rate and rhythm, no murmur Abdomen: Soft, non-tender Back: Normal Musculoskeletal: No edema or tenderness Neurologic: Awake, alert, no obvious deficits, moving all extremities Psychiatric: Appropriate, cooperative, mild nonrhythmic tremors, no SI no HI, thoughts linear and goal-directed Course - Vital Signs Last Recorded V/S: Last Vital Signs Temp 97.1 F 10/28/19 16:20 Pulse 85 10/28/19 16:20 Resp 18 10/28/19 16:20 BP 144/88 H 10/28/19 16:20 Pulse Ox 98 10/28/19 16:20 - Orders/Labs/Meds Orders: Active Orders 24 hr Category Date Time Status LITHIUM [REF] Stat Lab 10/28/19 17:25 Ordered Labs: Laboratory Tests 10/28/19 Range/Units 16:35 Sodium 135 L (136-145) mmol/L Potassium 3.9 (3.5-5.1) mmol/L Chloride 100 (98-107) mmol/L Carbon Dioxide 29.6 (21.0-32.0) mmol/L BUN 12 (7.0-18.0) mg/dL Creatinine 1.3 H (0.6-1.0) mg/dL Est Cr Clr Drug Dosing 58.91 mL/min Estimated GFR (MDRD) 44.9 ml/min Glucose 127 H (74-106) mg/dL Calcium 9.6 (8.5-10.1) mg/dL Departure - Departure Time of Disposition: 17:55 Disposition: Home, Self-Care 01 Condition: Good Clinical Impression: Medication side effect - Discharge Information *PRESCRIPTION DRUG MONITORING PROGRAM REVIEWED*: Not Applicable *COPY OF PRESCRIPTION DRUG MONITORING REPORT IN PATIENT CLARITA: Not Applicable Forms: ED Department Discharge Additional Instructions: As we discussed I think it reasonable for the moment to suspect that your symptoms are due to the increased dose of lithium. Your blood chemistry was good. I recommend that you do not stop your lithium completely. As we discussed, I recommend that you go back to the lower dosage that you were on prior to the increase last . I encourage you to call your doctor on Thursday to discuss this and arrange for additional medication management. The following information is given to patients seen in the emergency department who are being discharged to home. This information is to outline your options for follow-up care. We provide all patients seen in our emergency department with a follow-up referral. The need for follow-up, as well as the timing and circumstances, are variable depending upon the specifics of your emergency department visit. If you don't have a primary care physician on staff, we will provide you with a referral. We always advise you to contact your personal physician following an emergency department visit to inform them of the circumstance of the visit and for follow-up with them and/or the need for any referrals to a consulting specialist. The emergency department will also refer you to a specialist when appropriate. This referral assures that you have the opportunity for follow-up care with a specialist. All of these measure are taken in an effort to provide you with optimal care, which includes your follow-up. Under all circumstances we always encourage you to contact your private physician who remains a resource for coordinating your care. When calling for follow-up care, please make the office aware that this follow-up is from your recent emergency room visit. If for any reason you are refused follow-up, please contact the [facility] Emergency Department at and asked to speak to the emergency department charge nurse. Sepsis Event Note - Evaluation Sepsis Screening Result: No Definite Risk - Focused Exam Vital Signs: Vital Signs Temp Pulse Resp BP Pulse Ox 10/28/19 16:20 97.1 F 85 18 144/88 H 98 Date Exam was Performed: 10/28/19 Time Exam was Performed: 17:54 - My Orders Last 24 Hours: My Active Orders 10/28/19 17:25 LITHIUM [REF] Stat - Assessment/Plan Last 24 Hours: My Active Orders 10/28/19 17:25 LITHIUM [REF] Stat Assessment:: 44-year-old female with history as noted above is presenting with signs and symptoms that are consistent with side effects of increased lithium versus hypernatremia secondary to same. No signs of CVA no signs of seizure activity patient appears nontoxic and well-appearing. BMP and lithium level pending. Independent [place] level is a send out so we will not get that back her BMP is without concerning finding. I do think medication side effect is a reasonable explanation for symptoms patient ambulates with a steady gait she has no tremor at this time she is somewhat anxious because of the hospital setting. I think discharge is appropriate she will drop her lithium dose back to the lower level that was not causing the symptoms that she was on last . Patient will call her prescriber on Thursday to arrange additional follow-up.
[2019-10-28 16:57] LABS: CARBON DIOXIDE,CO2 29.6 mmol/L (21.0-32.0); POTASSIUM,K 3.9 mmol/L (3.5-5.1)
[2019-10-28 19:34] VITALS: BP 131/93; PULSE 86
== END 2019-10-28 18:05 | disposition home or self-care (01) ==
LOC: MW.ED 16:08
DX: G25.2 Other specified forms of tremor (principal); T43.595A Adverse effect of other antipsychotics and neuroleptics, initial encounter; I10 Essential (primary) hypertension; J45.909 Unspecified asthma, uncomplicated; K21.9 Gastro-esophageal reflux disease without esophagitis; F31.9 Bipolar disorder, unspecified; F41.9 Anxiety disorder, unspecified; E66.9 Obesity, unspecified; Z68.36 Body mass index [BMI] 36.0-36.9, adult
CPT/HCPCS: 36415; 80048; 80178; 99284

== ENCOUNTER 2021-03-14 11:12 | Emergency (ER) | payer MEDICAID ==
[2021-03-14] MEDS ORDERED: Sodium Chloride 0.9% 2.5 ML Syringe FLUSH PRN (11:49)
[2021-03-14] MEDS ORDERED: Sodium Chloride 0.9% 10 ML Syringe FLUSH PRN (11:49)
[2021-03-14] MEDS ORDERED: Morphine 4 MG/ML Syringe IVPUSH ONE (12:01)
[2021-03-14] MEDS ORDERED: Ketorolac 30 MG/ML SDV IVPUSH ONE (12:01)
[2021-03-14] MEDS ORDERED: Ondansetron 4 MG/2 ML SDV IVPUSH ONE (12:01)
[2021-03-14 12:53] LABS: BLOOD UREA NITROGEN,BUN 8 mg/dL (7.0-18.0); CARBON DIOXIDE,CO2 28.3 mmol/L (21.0-32.0); CHLORIDE,CL 99 mmol/L (98-107); GLUCOSE RANDOM 112 mg/dL (74-106); LIPASE 80 U/L (73-393); POTASSIUM,K 3.5 mmol/L (3.5-5.1); SODIUM,NA 137 mmol/L (136-145)
[2021-03-14] MEDS ORDERED: Iopamidol 755 MG/ML 500 ML Multipack Bottle IVPUSH STA (13:40)
--- NOTE | 2021-03-14 14:47 | CT ---
INDICATION: Right lower quadrant pain. TECHNIQUE: Axial images. Sagittal and coronal reconstructions. 100 mL Isovue-370 IV. COMPARISON: 04/21/2018. FINDINGS: Lower chest: Normal heart size. No pericardial effusion. Lung bases are clear. Abdomen and pelvis: Fatty infiltration of the liver. Status post cholecystectomy. No significant bile duct dilatation. Spleen is normal in size. Pancreas appears unremarkable. Normal adrenal glands. Kidneys are normal in size. No hydronephrosis. Normal caliber of the abdominal aorta. Atherosclerotic changes. No abnormally dilated bowel to suggest obstruction. Normal appendix. No free air or free fluid. No appreciable lymphadenopathy. Collapsed urinary bladder. Hysterectomy. Bones: No acute abnormality. Old rib fractures. Small posterior right paracentral disc protrusion L4-5. IMPRESSION: 1. No CT signs of an acute infectious or inflammatory process in the abdomen and pelvis. Specifically, normal appendix. 2. Nonacute findings as noted. Dictated by Kaden Wade MD @ 03/14/2021 2:43:07 PM Please note that all CT scans at this facility use dose modulation, iterative reconstruction, and/or weight-based dosing when appropriate to reduce radiation dose to as low as reasonably achievable. Dictated by: Kaden Wade MD @ 03/14/2021 14:45:33 (Electronically Signed)
--- NOTE | 2021-03-14 14:51 | EDM.PDOC ---
ED HPI GENERAL MEDICAL PROBLEM - General Chief Complaint: Abdominal Pain Stated Complaint: PAIN NEAR APPENDIX AREA FOR A FEW DAYS Time Seen by Provider: 03/14/21 11:35 Source of Information: Reports: Patient History Limitations: Reports: No Limitations - History of Present Illness INITIAL COMMENTS - FREE TEXT/NARRATIVE: HISTORY AND PHYSICAL: History of present illness: Patient is a 45-year-old female who presents emergency room today with concern of right lower abdominal pain that has going for the past 2 days. Patient states that she leaned over today and felt a "bursting sensation "and states that she thought she burst her appendix open. Patient states that she has her gallbladder removed and complete hysterectomy and does not have ovaries. Patient states that she has continued to have pain so came to the emergency room for further evaluation. Denies any other symptoms or concerns. Patient denies fever, chills, chest pain, shortness of breath, or cough. Denies headache, neck stiff ness, change in vision, syncope, or near syncope. Denies nausea, vomiting, diarrhea, constipation, or dysuria. Has not noted any blood in urine or stool. Patient has been eating and drinking appropriately. Review of systems: As per history of present illness and below otherwise all systems reviewed and negative. Past medical history: As per history of present illness and as reviewed below otherwise noncontributory. Surgical history: As per history of present illness and as reviewed below otherwise noncontributory. Social history: See social history for further information Family history: As per history of present illness and as reviewed below otherwise noncontributory. Physical exam: General: Patient is alert, oriented, and in no acute distress. Patient laying comfortably on exam table. Vitals stable and reviewed by me. HEENT: Atraumatic, normocephalic, pupils equal and reactive bilaterally, negative for conjunctival pallor or scleral icterus, mucous membranes moist, TMs normal bilaterally, throat clear, neck supple, nontender, trachea midline. No drooling or trismus noted. No meningeal signs. No hot potato voice noted. Lungs: Clear to auscultation, breath sounds equal bilaterally, chest nontender. Heart: S1S2, regular rate and rhythm without overt murmur Abdomen: Exam of abdomen is limited due to BMI 37.3. Otherwise, soft, nondistended, moderate tenderness of the right lower quadrant. Negative for masses or hepatosplenomegaly. Negative for costovertebral tenderness. Pelvis: Stable nontender. Genitourinary: Deferred. Rectal: Deferred. Skin: Intact, warm, dry. No lesions or rashes noted. Extremities: Atraumatic, negative for cords or calf pain. Neurovascular unremarkable. Neuro: Awake, alert, oriented. Cranial nerves II through XII unremarkable. Cerebellum unremarkable. Motor and sensory unremarkable throughout. Exam nonfocal. Notes: Patient is a 45-year-old female who presents emergency room today for right lower quadrant abdominal pain x2 days with a history of cholecystectomy and complete hysterectomy. Upon arrival to the ED, patient is vitally stable and well-appearing on exam but does have tenderness of her right lower abdomen, although full examination of the abdomen is limited due to BMI of 37.3. Will obtain basic lab work, abdominal pelvic CT scan. CBC unremarkable. CMP shows mild elevation of glucose at 112, mild transaminitis with AST ALT and alk phos at 71, 76, and 151 respectively. Urinalysis clear. Abdominal pelvic CT scan with contrast shows no signs of acute infectious or inflammatory process in the abdomen or pelvis. Specifically, the appendix is normal. Nonacute findings as above. All incidental findings of imaging today discussed with patient and the importance to have this followed up with a primary care provider. Upon reevaluation of patient, she remains vitally stable and has improvement of her symptoms with therapeutics given today in the emergency room. Strict return precautions thoroughly discussed with patient. Discussed importance for follow- up with a primary care provider. Voices understanding and is agreeable to plan of care. Denies any further questions or concerns at this time. Diagnostics: CBC, CMP, UA, urine hCG, lipase, abdominal pelvic CT with contrast Therapeutics: Normal saline, morphine, Zofran Prescription: None Impression: Abdominal pain, unspecified Transaminitis mild Plan: 1. You can alternate ibuprofen and Tylenol as directed for pain and discomfort. 2. Follow-up with primary care provider as discussed. Return to the ED as needed and as discussed. Definitive disposition and diagnosis as appropriate pending reevaluation and review of above. Abdominal Pain Score (Numeric/FACES): 10 - Related Data Allergies Allergy/AdvReac Type Severity Reaction Status Date / Time lithium Allergy Cannot Verified 03/14/21 11:52 Remember Home Meds: Home Meds Gabapentin [Neurontin] 600 mg PO TID 03/30/17 [History] Omeprazole 20 mg PO DAILY 03/30/17 [History] tiZANidine [Zanaflex] 4 mg PO BEDTIME 03/30/17 [History] Albuterol [Ventolin HFA] 2 puff INH ASDIRECTED PRN 07/27/17 [History] Doxepin [SINEquan] 25 mg PO BEDTIME 10/26/18 [History] LORazepam 0.5 mg PO BID 10/26/18 [History] Milnacipran HCl [Savella] 50 mg PO TID 10/26/18 [History] Venlafaxine HCl [Venlafaxine HCl ER] 75 mg PO TID 10/26/18 [History] cloNIDine [Catapres] 0.1 mg PO TID 10/26/18 [History] Diclofenac Sodium [Voltaren] 75 mg PO BIDMEALS PRN #15 tab.cr 06/27/19 [Rx] Past Medical History HEENT History: Reports: Other (See Below) Other HEENT History: top and bottom dentures, wears glasses/contacts Cardiovascular History: Reports: Heart Murmur, Hypertension Respiratory History: Reports: Asthma Gastrointestinal History: Reports: GERD Genitourinary History: Reports: None [employer] History: Reports: Musculoskeletal History: Reports: Fracture, Fibromyalgia, Neck Pain, Chronic Other Musculoskeletal History: hx fx back, shoulder, wrist and clavicle, DDD Neurological History: Reports: Concussion, Migraines, Seizure Other Neuro History: states "had seizure due to being taken off medication", Psychiatric History: Reports: Anxiety, Bipolar, Depression, PTSD Endocrine/Metabolic History: Reports: Obesity/BMI 30+ Hematologic History: Reports: None Immunologic History: Reports: None Oncologic (Cancer) History: Reports: Cervix Dermatologic History: Reports: None - Infectious Disease History Infectious Disease History: Reports: Chicken Pox - Past Surgical History Head Surgeries/Procedures: Reports: None HEENT Surgical History: Reports: None Cardiovascular Surgical History: Reports: None Respiratory Surgical History: Reports: None GI Surgical History: Reports: Cholecystectomy Female Surgical History: Reports: Hysterectomy Endocrine Surgical History: Reports: None Neurological Surgical History: Reports: None Musculoskeletal Surgical History: Reports: Arthroscopic Knee, Other (See Below) Other Musculoskeletal Surgeries/Procedures:: clavicle fx repair Oncologic Surgical History: Reports: None Dermatological Surgical History: Reports: None Social & Family History - Family History Family Medical History: No Pertinent Family History - Tobacco Use Tobacco Use Status *Q: Never Tobacco User - Caffeine Use Caffeine Use: Reports: None - Recreational Drug Use Recreational Drug Use: No ED ROS GENERAL - Review of Systems Review Of Systems: Comprehensive ROS is negative, except as noted in HPI. ED EXAM, GENERAL - Physical Exam Exam: See Below (see dictation) Course - Vital Signs Last Recorded V/S: Last Vital Signs Temp 95.7 F L 03/14/21 11:53 Pulse 80 03/14/21 13:16 Resp 18 03/14/21 13:16 BP 136/87 03/14/21 13:16 Pulse Ox 94 L 03/14/21 13:16 - Orders/Labs/Meds Orders: Active Orders 24 hr Category Date Time Status Sodium Chloride 0.9% [Saline Flush] Med 03/14/21 11:49 Active 10 ml FLUSH ASDIRECTED PRN Sodium Chloride 0.9% [Saline Flush] Med 03/14/21 11:49 Active 2.5 ml FLUSH ASDIRECTED PRN Saline Lock Insert [OM.PC] Stat Oth 03/14/21 11:49 Ordered Medication Orders Sodium Chloride (Sodium Chloride 0.9% 10 Ml Syringe) 10 ml FLUSH ASDIRECTED PRN PRN Reason: Keep Vein Open Last Admin: 03/14/21 12:12 Dose: 10 ml Documented by: [id number] Sodium Chloride (Sodium Chloride 0.9% 2.5 Ml Syringe) 2.5 ml FLUSH ASDIRECTED PRN PRN Reason: Keep Vein Open Last Admin: 03/14/21 12:12 Dose: 2.5 ml Documented by: [id number] Labs: Laboratory Tests 03/14/21 03/14/21 03/14/21 Range/Units 12:04 12:04 12:04 WBC 7.94 (4.0-11.0) K/uL RBC 4.81 (4.30-5.90) M/uL Hgb 13.9 (12.0-16.0) g/dL Hct 40.4 (36.0-46.0) % MCV 84.0 (80.0-98.0) fL MCH 28.9 (27.0-32.0) pg MCHC 34.4 (31.0-37.0) g/dL RDW Std Deviation 43.2 (28.0-62.0) fl RDW Coeff of Marjorie 14 (11.0-15.0) % Plt Count 298 (150-400) K/uL MPV 9.20 (7.40-12.00) fL Neut % (Auto) 64.1 (48.0-80.0) % Lymph % (Auto) 26.4 (16.0-40.0) % Nelson % (Auto) 7.4 (0.0-15.0) % Eos % (Auto) 1.5 (0.0-7.0) % Baso % (Auto) 0.6 (0.0-1.5) % Neut # (Auto) 5.1 (1.4-5.7) K/uL Lymph # (Auto) 2.1 (0.6-2.4) K/uL Nelson # (Auto) 0.6 (0.0-0.8) K/uL Eos # (Auto) 0.1 (0.0-0.7) K/uL Baso # (Auto) 0.1 (0.0-0.1) K/uL Nucleated RBC % 0.0 /100WBC Nucleated RBCs # 0 K/uL Sodium 137 (136-145) mmol/L Potassium 3.5 (3.5-5.1) mmol/L Chloride 99 (98-107) mmol/L Carbon Dioxide 28.3 (21.0-32.0) mmol/L BUN 8 (7.0-18.0) mg/dL Creatinine 1.0 (0.6-1.0) mg/dL Est Cr Clr Drug Dosing 73.17 mL/min Estimated GFR (MDRD) > 60.0 ml/min Glucose 112 H (74-106) mg/dL Calcium 9.6 (8.5-10.1) mg/dL Total Bilirubin 0.5 (0.2-1.0) mg/dL AST 71 H (15-37) IU/L ALT 76 H (14-63) IU/L Alkaline Phosphatase 151 H (46-116) U/L Total Protein 7.7 (6.4-8.2) g/dL Albumin 4.0 (3.4-5.0) g/dL Globulin 3.7 (2.6-4.0) g/dL Albumin/Globulin Ratio 1.1 (0.9-1.6) Lipase 80 (73-393) U/L HCG, Qual NEGATIVE (NEG) Urine Color Urine Appearance Urine pH (5.0-8.0) Ur Specific Melber (1.001-1.035) Urine Protein (NEGATIVE) mg/dL Urine Glucose (UA) (NEGATIVE) mg/dL Urine Ketones (NEGATIVE) mg/dL Urine Occult Blood (NEGATIVE) Urine Nitrite (NEGATIVE) Urine Bilirubin (NEGATIVE) Urine Urobilinogen (<2.0) EU/dL Ur Leukocyte Esterase (NEGATIVE) 03/14/21 Range/Units 12:10 WBC (4.0-11.0) K/uL RBC (4.30-5.90) M/uL Hgb (12.0-16.0) g/dL Hct (36.0-46.0) % MCV (80.0-98.0) fL MCH (27.0-32.0) pg MCHC (31.0-37.0) g/dL RDW Std Deviation (28.0-62.0) fl RDW Coeff of Marjorie (11.0-15.0) % Plt Count (150-400) K/uL MPV (7.40-12.00) fL Neut % (Auto) (48.0-80.0) % Lymph % (Auto) (16.0-40.0) % Nelson % (Auto) (0.0-15.0) % Eos % (Auto) (0.0-7.0) % Baso % (Auto) (0.0-1.5) % Neut # (Auto) (1.4-5.7) K/uL Lymph # (Auto) (0.6-2.4) K/uL Nelson # (Auto) (0.0-0.8) K/uL Eos # (Auto) (0.0-0.7) K/uL Baso # (Auto) (0.0-0.1) K/uL Nucleated RBC % /100WBC Nucleated RBCs # K/uL Sodium (136-145) mmol/L Potassium (3.5-5.1) mmol/L Chloride (98-107) mmol/L Carbon Dioxide (21.0-32.0) mmol/L BUN (7.0-18.0) mg/dL Creatinine (0.6-1.0) mg/dL Est Cr Clr Drug Dosing mL/min Estimated GFR (MDRD) ml/min Glucose (74-106) mg/dL Calcium (8.5-10.1) mg/dL Total Bilirubin (0.2-1.0) mg/dL AST (15-37) IU/L ALT (14-63) IU/L Alkaline Phosphatase (46-116) U/L Total Protein (6.4-8.2) g/dL Albumin (3.4-5.0) g/dL Globulin (2.6-4.0) g/dL Albumin/Globulin Ratio (0.9-1.6) Lipase (73-393) U/L HCG, Qual (NEG) Urine Color YELLOW Urine Appearance CLEAR Urine pH 6.0 (5.0-8.0) Ur Specific Melber 1.015 (1.001-1.035) Urine Protein NEGATIVE (NEGATIVE) mg/dL Urine Glucose (UA) NEGATIVE (NEGATIVE) mg/dL Urine Ketones NEGATIVE (NEGATIVE) mg/dL Urine Occult Blood NEGATIVE (NEGATIVE) Urine Nitrite NEGATIVE (NEGATIVE) Urine Bilirubin NEGATIVE (NEGATIVE) Urine Urobilinogen 0.2 (<2.0) EU/dL Ur Leukocyte Esterase NEGATIVE (NEGATIVE) Meds: Medications Generic Name Dose Route Start Last Admin Trade Name Freina PRN Reason Stop Dose Admin Sodium Chloride 10 ml 03/14/21 11:49 03/14/21 12:12 Sodium Chloride 0.9% 10 Ml Syringe FLUSH 10 ml ASDIRECTED PRN Administration Keep Vein Open Sodium Chloride 2.5 ml 03/14/21 11:49 03/14/21 12:12 Sodium Chloride 0.9% 2.5 Ml Syringe FLUSH 2.5 ml ASDIRECTED PRN Administration Keep Vein Open Discontinued Medications Generic Name Dose Route Start Last Admin Trade Name Freq PRN Reason Stop Dose Admin Iopamidol 100 ml 03/14/21 13:40 03/14/21 13:52 Iopamidol 755 Mg/Ml 500 Ml Multipack Bottle IVPUSH 03/14/21 13:41 100 ml ONETIME STA Administration Ketorolac Tromethamine 30 mg 03/14/21 12:01 03/14/21 12:11 Ketorolac 30 Mg/Ml Sdv IVPUSH 03/14/21 12:02 30 mg ONETIME ONE Administration Morphine Sulfate 4 mg 03/14/21 12:01 03/14/21 12:12 Morphine 4 Mg/Ml Syringe IVPUSH 03/14/21 12:02 4 mg ONETIME ONE Administration Ondansetron HCl 4 mg 03/14/21 12:01 03/14/21 12:11 Ondansetron 4 Mg/2 Ml Sdv IVPUSH 03/14/21 12:02 4 mg ONETIME ONE Administration Departure - Departure Time of Disposition: 14:50 Disposition: Home, Self-Care 01 Clinical Impression: Transaminitis Abdominal pain Qualifiers: Abdominal location: unspecified location Qualified Code(s): R10.9 - Unspecified abdominal pain - Discharge Information Instructions: Abdominal Pain, Adult, [id number] Referrals: Marah Farias PA [Primary Care Provider] - Forms: ED Department Discharge Additional Instructions: The following information is given to patients seen in the emergency department who are being discharged to home. This information is to outline your options for follow-up care. We provide all patients seen in our emergency department with a follow-up referral. The need for follow-up, as well as the timing and circumstances, are variable depending upon the specifics of your emergency department visit. If you don't have a primary care physician on staff, we will provide you with a referral. We always advise you to contact your personal physician following an e mergency department visit to inform them of the circumstance of the visit and for follow-up with them and/or the need for any referrals to a consulting specialist. The emergency department will also refer you to a specialist when appropriate. This referral assures that you have the opportunity for follow-up care with a specialist. All of these measure are taken in an effort to provide you with op timal care, which includes your follow-up. Under all circumstances we always encourage you to contact your private physician who remains a resource for coordinating your care. When calling for follow-up care, please make the office aware that this follow-up is from your recent emergency room visit. If for any reason you are refused follow-up, please contact the [facility] Emergency Department at and asked to speak to the emergency department charge nurse. [facility] [address] [place] [address] [place] [address] [facility] [address] [place] [address] 1. You can alternate ibuprofen and Tylenol as directed for pain and discomfort. 2. Follow-up with a primary care provider as discussed. Return to the ED as needed and as discussed. Sepsis Event Note (ED) - Evaluation Sepsis Screening Result: No Definite Risk - Focused Exam Vital Signs: Vital Signs Temp Pulse Resp BP Pulse Ox 03/14/21 13:16 80 18 136/87 94 L 03/14/21 11:53 95.7 F L 86 15 126/85 97 - My Orders Last 24 Hours: My Active Orders 03/14/21 11:49 Sodium Chloride 0.9% [Saline Flush] 10 ml FLUSH ASDIRECTED PRN Sodium Chloride 0.9% [Saline Flush] 2.5 ml FLUSH ASDIRECTED PRN Saline Lock Insert [OM.PC] Stat - Assessment/Plan Last 24 Hours: My Active Orders 03/14/21 11:49 Sodium Chloride 0.9% [Saline Flush] 10 ml FLUSH ASDIRECTED PRN Sodium Chloride 0.9% [Saline Flush] 2.5 ml FLUSH ASDIRECTED PRN Saline Lock Insert [OM.PC] Stat
[2021-03-14 15:12] VITALS: BP 121/82; PULSE 78
== END 2021-03-14 15:04 | disposition home or self-care (01) ==
LOC: MW.ED 11:12
DX: R10.31 Right lower quadrant pain (principal); R74.01 Elevation of levels of liver transaminase levels; I10 Essential (primary) hypertension; J45.909 Unspecified asthma, uncomplicated; K21.9 Gastro-esophageal reflux disease without esophagitis; E66.9 Obesity, unspecified; Z68.37 Body mass index [BMI] 37.0-37.9, adult; Z88.8 Allergy status to other drugs, medicaments and biological substances; Z79.899 Other long term (current) drug therapy
CPT/HCPCS: 74177; 80053; 81003; 83690; 84703; 85025; 96374; 96375; 99284; J1885; J2270; J2405; Q9967

== ENCOUNTER 2021-08-15 15:57 | Emergency (ER) | payer MEDICAID ==
[2021-08-15] MEDS ORDERED: Ketorolac 30 MG/ML SDV IVPUSH ONE (16:16)
[2021-08-15 16:44] LABS: BLOOD UREA NITROGEN,BUN 7 mg/dL (7.0-18.0); CARBON DIOXIDE,CO2 26.9 mmol/L (21.0-32.0); CHLORIDE,CL 95 mmol/L (98-107); GLUCOSE RANDOM 133 mg/dL (74-106); POTASSIUM,K 3.7 mmol/L (3.5-5.1); SODIUM,NA 130 mmol/L (136-145)
[2021-08-15 17:37] LABS: CORONAVIRUS COVID-19 NAA NEGATIVE (NEGATIVE); INFLUENZA A NAA NEGATIVE (NEGATIVE); INFLUENZA B NAA NEGATIVE (NEGATIVE)
[2021-08-15] MEDS ORDERED: Dexamethasone 4 MG/ML SDV IVPUSH ONE (17:37)
[2021-08-15 18:15] VITALS: BP 122/81; PULSE 75
== END 2021-08-15 18:14 | disposition home or self-care (01) ==
LOC: MW.ED 15:57
DX: R07.89 Other chest pain (principal); I10 Essential (primary) hypertension; K21.9 Gastro-esophageal reflux disease without esophagitis; E66.9 Obesity, unspecified; Z68.31 Body mass index [BMI] 31.0-31.9, adult; Z79.899 Other long term (current) drug therapy; Z20.822 Contact with and (suspected) exposure to COVID-19
CPT/HCPCS: 0240U; 36415; 71045; 80053; 84484; 85025; 85379; 93005; 96374; 96375; 99285; J1100; J1885; 93010; 99284

== ENCOUNTER 2024-11-28 19:09 | Emergency (ER) | payer MEDICAID ==
[2024-11-28] MEDS ORDERED: Sodium Chloride 0.9% 20 ML SDV IV PRN (19:29)
[2024-11-28] MEDS: Sodium Chloride 0.9% 2.5 ML Syringe FLUSH PRN (19:42)
[2024-11-28] MEDS: Sodium Chloride 0.9% 10 ML Syringe FLUSH PRN (19:42)
[2024-11-28] MEDS: Metoclopramide 10 MG/2 ML SDV IVPUSH ONE (19:42)
[2024-11-28] MEDS: Sodium Chloride 0.9% 1,000 ML IV SCH (19:42)
[2024-11-28 19:47] LABS: HEMATOCRIT 40.7 % (37.0-47.0); HEMOGLOBIN 12.6 g/dL (12.0-16.0); MEAN CORPUSCULAR HEMOGLOBIN 24.1 pg (28.0-32.0); MEAN PLATELET VOLUME 8.9 fL (9.4-12.3); PLATELET COUNT,PLT 347 K/uL (150-400); RED BLOOD CELL COUNT 5.22 M/uL (4.10-5.30); WHITE BLOOD CELL COUNT,WBC 10.68 K/uL (3.9-11.3)
[2024-11-28 20:03] LABS: CARBON DIOXIDE,CO2 30.3 mmol/L (21.0-32.0); EST CRCL DRUG DOSING (CG) 67.63 mL/min; POTASSIUM,K 3.8 mmol/L (3.5-5.1)
[2024-11-28 21:12] VITALS: BP 140/85; PULSE 61
== END 2024-11-28 21:16 | disposition home or self-care (01) ==
LOC: MW.ED 19:09
DX: G43.909 Migraine, unspecified, not intractable, without status migrainosus (principal); I10 Essential (primary) hypertension; J45.909 Unspecified asthma, uncomplicated; F17.210 Nicotine dependence, cigarettes, uncomplicated; Z91.048 Other nonmedicinal substance allergy status; Z79.899 Other long term (current) drug therapy; Z79.51 Long term (current) use of inhaled steroids
CPT/HCPCS: 36415; 70450; 80048; 85027; 96361; 96374; 96375; 99284; J1100; J2765; J7030